=== PATIENT | male | born 1955 | race Two or more races ===

== ENCOUNTER → 2020-11-01 | Outpatient (CLI) | payer MEDICARE, BC ==
--- NOTE | 2020-11-01 18:35 | CT ---
EXAMINATION TYPE: CT angio chest DATE OF EXAM: 11/01/2020 COMPARISON: Chest x-ray 11/01/2020 HISTORY: SOB post covid CT DLP: 657 mGycm Automated exposure control for dose reduction was used. CONTRAST: CTA scan of the thorax is performed with IV Contrast, patient injected with 66cc mL of Isovue 370, pu lmonary embolism protocol. MIP images are created and reviewed. 3D reconstructed images are created on an independent workstation and reviewed. FINDINGS: LUNGS: The lungs are remarkable for some bandlike areas of increased attenuation likely representing atelectasis or scarring, there is no concerning parenchymal mass or nodule identified. There is no pleural effusion or pneumothorax seen. The tracheobronchial tree is patent. AORTA: No additional significant abnormality is seen. MEDIASTINUM: There is satisfactory enhancement of the pulmonary artery and its branches, there is no CT evidence for pulmonary embolism. There are no greater than 1 cm hilar or mediastinal lymph nodes. No pericardial effusion is seen. OTHER: No additional significant abnormality is seen. IMPRESSION: NO PULMONARY EMBOLUS IS EVIDENT
== END | disposition home or self-care (01) ==
LOC: RADCTMAIN 17:11
PROVIDERS: ATTEND Internal Medicine
DX: R06.02 Shortness of breath (principal); Z86.16 Personal history of COVID-19
CPT/HCPCS: 82565; 84520; 71275; 36415; Q9967

== ENCOUNTER 2021-01-05 17:39 | Observation (INO) | payer MEDICARE, BC ==
[2021-01-05 18:27] LABS: Basophils # (A) 0.1 k/uL (0-0.2); Basophils % (A) 1 %; Eosinophils # (A) 0.2 k/uL (0-0.7); Eosinophils % (A) 3 %; HCT 43.5 % (39.0-53.0); HGB 14.7 gm/dL (13.0-17.5); Lymphocytes # (A) 2.6 k/uL (1.0-4.8); Lymphocytes % (A) 38 %; MCHC 33.7 g/dL (31.0-37.0); Monocytes # (A) 0.5 k/uL (0-1.0); Monocytes % (A) 7 %; Neutrophils # (A) 3.4 k/uL (1.3-7.7); Neutrophils % (A) 49 %; Platelet Count 206 k/uL (150-450); RBC 4.89 m/uL (4.30-5.90)
[2021-01-05 18:37] LABS: ALT 29 U/L (4-49); AST 20 U/L (17-59); African American GFR (CKD) >90 (>60 ml/min/1.73 sqM); Albumin 3.9 g/dL (3.5-5.0); Alkaline Phosphatase 83 U/L (38-126); Anion Gap 9 mmol/L; Blood Urea Nitrogen 19 mg/dL (9-20); Calcium 8.8 mg/dL (8.4-10.2); Carbon Dioxide 23 mmol/L (22-30); Chloride 108 mmol/L (98-107); Glucose 102 mg/dL (74-99); Magnesium 1.9 mg/dL (1.6-2.3); Non-African American GFR(CKD) >90 (>60 ml/min/1.73 sqM); Partial Thromboplastin Time 23.5 sec (22.0-30.0); Potassium 3.8 mmol/L (3.5-5.1); Prothrombin Time 10.8 sec (9.0-12.0); Sodium 140 mmol/L (137-145); Total Bilirubin 0.5 mg/dL (0.2-1.3); Total Protein 6.3 g/dL (6.3-8.2)
--- NOTE | 2021-01-05 18:50 | ED ---
Chest Pain HPI - General Chief Complaint: Chest Pain Stated Complaint: Chest Pain Time Seen by Provider: 01/05/21 17:40 Source: patient Mode of arrival: ambulatory Limitations: no limitations - History of Present Illness Initial Comments: 65-year-old male with past medical history of hypertension who presents emergency chest pain. States the chest discomfort started around 2:00 this afternoon. He describes it as a pressure sensation which radiated to his left arm. Denies any associated nausea, vomiting or diaphoresis. No previous history of cardiac disease. They stated cardiac clearance years ago before orthopedic surgery. Denies fevers, chills, cough. No sick contacts. No lower extremity swelling. Denies history of DVT or PE. Patient went to an urgent care where he had a 12-lead EKG performed and was transferred to the hospital for further evaluation. No other alleviating, precipitating or modifying factors - Related Data Home Medications Medication Instructions Recorded Confirmed Aspirin EC [Ecotrin Low Dose] 81 mg PO HS 01/05/21 01/05/21 Fluticasone Propionate [Flovent 1 puff INHALATION RT-BID 01/05/21 01/05/21 Hfa 220 mcg] Latanoprost/Pf [Latanoprost 0.005% 1 drop BOTH EYES HS 01/05/21 01/05/21 Eye Drop] Losartan Potassium 100 mg PO HS 01/05/21 01/05/21 Tamsulosin HCl [Flomax] 0.4 mg PO HS 01/05/21 01/05/21 valACYclovir HCL [Valtrex] 500 mg PO DAILY PRN 01/05/21 01/05/21 Allergies Allergy/AdvReac Type Severity Reaction Status Date / Time ciprofloxacin [From Cipro] Allergy Rash/Hives Verified 01/05/21 19:45 methocarbamol [From Robaxin] Allergy Rash/Hives Verified 01/05/21 19:45 Review of Systems ROS Statement: Those systems with pertinent positive or pertinent negative responses have been documented in the HPI. ROS Other: All systems not noted in ROS Statement are negative. EKG Findings - EKG Comments: EKG Findings:: EKG at 1753 demonstrates a normal sinus rhythm with a ventricular rate of 65. ID interval 162. QRS 94. QTC 430. Inverted T waves [address] segment elevation. Repeat EKG at 1843 demonstrates a ventricular rhythm with a rate of 62. ID interval 160. QRS 98. QTC of 406. Continued inverted T-wave in 1 and aVL Past Medical History Past Medical History: Hypertension, Prostate Disorder History of Any Multi-Drug Resistant Organisms: None Reported Past Surgical History: Orthopedic Surgery Additional Past Surgical History / Comment(s): R. shoulder sx, Left hip replacement, bilat knee scope Past Psychological History: No Psychological Hx Reported Smoking Status: Never smoker Past Alcohol Use History: Occasional Past Drug Use History: None Reported General Exam Limitations: no limitations General appearance: alert, in no apparent distress Head exam: Present: atraumatic, normocephalic, normal inspection Eye exam: Present: normal appearance, PERRL, EOMI. Absent: scleral icterus, conjunctival injection, periorbital swelling ENT exam: Present: normal exam, mucous membranes moist Neck exam: Present: normal inspection. Absent: tenderness, meningismus, lymphadenopathy Respiratory exam: Present: normal lung sounds bilaterally. Absent: respiratory distress, wheezes, rales, rhonchi, stridor Cardiovascular Exam: Present: regular rate, normal rhythm, normal heart sounds. Absent: systolic murmur, diastolic murmur, rubs, gallop, clicks GI/Abdominal exam: Present: soft, normal bowel sounds. Absent: distended, tenderness, guarding, rebound, rigid Extremities exam: Present: normal inspection, full ROM, normal capillary refill. Absent: tenderness, pedal edema, joint swelling, calf tenderness Back exam: Present: normal inspection Neurological exam: Present: alert, oriented X3, CN II-XII intact Psychiatric exam: Present: normal affect, normal mood Skin exam: Present: warm, dry, intact, normal color. Absent: rash Course Vital Signs 01/05/21 01/05/21 01/05/21 17:40 18:49 19:19 Temperature 98.0 F Pulse Rate 69 58 L Pulse Rate [ 62 Surveillance Officer ] Respiratory 17 18 Rate Blood Pressure 178/79 155/82 O2 Sat by Pulse 97 97 Oximetry 01/05/21 19:57 Temperature 98.0 F Pulse Rate 57 L Pulse Rate [ Surveillance Officer ] Respiratory 18 Rate Blood Pressure 145/85 O2 Sat by Pulse 96 Oximetry Chest Pain MDM - MDM Upon arrival patient was placed into room 5. A thorough history and physical exam was performed. 12-lead EKG was performed. Laboratory studies were conducted and chest x-ray is performed. Troponin is negative. Chest x-ray demonstrates no acute process. I did repeat a 12-lead EKG. I did recommend hospital admission for which patient did agree to. Spoke with Dr. Greer who agreed to admit the patient. He was transferred to the floor in stable condition. Disposition Clinical Impression: Chest pain Disposition: ADMITTED IP TO THIS HOSP Condition: Stable Is patient prescribed a controlled substance at d/c from ED?: No Decision to Admit Reason: Admit from EC Decision Date: 01/05/21 Decision Time: 19:44
--- NOTE | 2021-01-05 19:31 | XR ---
EXAMINATION TYPE: XR chest 2V DATE OF EXAM: 01/05/2021 COMPARISON: 11/01/2020 HISTORY: Chest pain TECHNIQUE: FINDINGS: Heart and mediastinum are normal. Lungs are clear of infiltrate. There is no heart failure. There are no hilar masses. There are chest leads. IMPRESSION: No active cardiopulmonary disease. Normal heart. No adverse change compared to old exam.
[2021-01-05] MEDS ORDERED: NALOXONE 0.4 MG/ML 1 ML VIAL IV PRN (19:44)
[2021-01-05] MEDS ORDERED: ASPIRIN 81 MG PO STA (19:50)
[2021-01-05] MEDS ORDERED: TAMSULOSIN 0.4 MG CAP.ER.24H PO SCH (21:30)
[2021-01-05] MEDS ORDERED: ASPIRIN 81 MG PO SCH (21:45)
[2021-01-05] MEDS ORDERED: LATANOPROST 0.005% OPHTH DROPS 2.5 ML BTL BOTH EYES SCH (22:00)
[2021-01-05] MEDS ORDERED: LOSARTAN 50 MG TAB PO SCH (22:00)
--- NOTE | 2021-01-06 02:45 | HP ---
HISTORY AND PHYSICAL HISTORY OF PRESENT ILLNESS: 65-year-old white male was admitted to the hospital with atypical chest pain radiating to the mid chest area into his shoulder all day today. He was brought to the emergency room, admitted for rule out myocardial infarction. He has a history of hypertension, morbid obesity. He has inverted T-waves in [address]-segment depression. He has some GERD. ALLERGIES: CIPRO, ROBAXIN. PAST MEDICAL HISTORY: Hypertension, prostate disorder. PAST SURGICAL HISTORY: Right shoulder surgery, left hip surgery, bilateral knee surgery. SOCIAL HISTORY: Does not smoke. No alcohol. No drugs. REVIEW OF SYSTEMS: 14 point negative otherwise review of systems. PHYSICAL EXAMINATION: Temp 98, pulse 50s to 60s, respiratory 16 to 18, blood pressure 150-170s over 70s to 80s, O2 97. ASSESSMENT: 1. Atypical chest pain. 2. Morbid obesity. 3. Hypertension. 4. Rule out gastroesophageal reflux disease. Cardiology to consult. So far troponins are negative x2. Possibly need a stress test prior to going home with clearance will be given by Cardiology. MMODL / IJN: [id number] /
[2021-01-06] MEDS ORDERED: FLUTICASONE 220 MCG INHALER INHALATION SCH (08:00)
[2021-01-06] MEDS ORDERED: amLODIPine 10 MG TAB PO SCH (09:00)
[2021-01-06] MEDS ORDERED: valACYclovir 500 MG TAB PO PRN (09:00)
[2021-01-06 09:25] LABS: Basophils # (A) 0.03 X 10*3/uL (0.00-0.10); Basophils % (A) 0.5 %; Eosinophils # (A) 0.25 X 10*3/uL (0.04-0.35); Eosinophils % (A) 3.8 %; HCT 43.3 % (39.6-50.0); Lymphocytes # (A) 2.93 X 10*3/uL (0.90-5.00); Lymphocytes % (A) 45.1 %; MCH 29.5 pg (27.0-32.0); MCHC 32.3 g/dL (32.0-37.0); MCV 91.4 fL (80.0-97.0); Mean Platelet Volume 12.7 fL (9.5-12.2); Monocytes # (A) 0.69 X 10*3/uL (0.20-1.00); Monocytes % (A) 10.6 %; Neutrophils # (A) 2.58 X 10*3/uL (1.80-7.70); Neutrophils % (A) 39.7 %; Platelet Count 204 X 10*3/uL (140-440); RBC 4.74 X 10*6/uL (4.40-5.60); RDW 13.2 % (11.5-14.5)
--- NOTE | 2021-01-06 10:00 | P.CRDCN ---
History of Present Illness History of present illness: HISTORY OF PRESENTING ILLNESS This is a pleasant 65-year-old male past medical history significant for hypertension and morbid obesity. He follows in the office with Dr. Beard. He denies prior history of coronary artery disease. He states his father is from heart disease at the age of 61. We have been asked to see in consultation for chest pain. He states yesterday he was sitting down watching television when he started feeling lightheaded. He has issues with his blood pressure so he checked it to see how was running. He states it was running high. He can't remember the Number but he said the bottom number was between 90 and 115. Shortly thereafter he developed a discomfort in the left precordial region described as a heavy pressure sensation that radiated to the left shoulder and left upper arm. This persisted for a couple of hours without any specific alleviating factors. Given his blood pressure was elevated he decided to go to urgent care. At urgent care they did an EKG and transferred him here for further evaluation. The EKG revealed sinus mechanism with T-wave inversions in the high lateral leads. There is no old EKG for comparison. The patient states prior to having shoulder surgery last year he did undergo a stress test at Dr. Beard's office. We were able to get a copy of the stress test and it was a Lexiscan stress test that was negative for any reversibility or myocardial perfusion defects. LV systolic function at that time was 71%. EKG, and on that EKG says resting EKG was normal sinus rhythm with PVC and poor R-wave progression from V1 through V3. There is no comment on the lateral leads and there is no copy of EKG. Chest x-ray is negative for an acute cardiopulmonary process. Laboratory data reviewed, CBC unremarkable, d-dimer 0.42, sodium 140, potassium 3.8, creatinine 0.78, magnesium 1.9, cardiac enzymes negative 3, NT proBNP 62. Current daily cardiac medications include aspirin 81 mg daily and l osartan 100 mg daily. REVIEW OF SYSTEMS At the time of my exam: CONSTITUTIONAL: Denies fever or chills. CARDIOVASCULAR: Denies chest pain, shortness of breath, orthopnea, PND or palpitations. RESPIRATORY: Denies cough. GASTROINTESTINAL: Denies abdominal pain, diarrhea, constipation, nausea or vomi ting. MUSCULOSKELETAL: Denies myalgias. NEUROLOGIC: Denies numbness, tingling, headacbe or weakness. ENDOCRINE: Denies fatigue, weight change, polydipsia or polyurina. GENITOURINARY: Denies burning, hematuria or urgency with micturation. HEMATOLOGIC: Denies history of anemia or bleeding. PHYSICAL EXAMINATION Blood pressure 160/78 heart rate 54 afebrile and maintaining oxygen saturation on room air. CONSTITUTIONAL: No apparent distress. Obese. HEENT: Head is normocephalic. Pupils are equal, round. Sclerae anicteric. Mucous membranes of the mouth are moist. No JVD. No carotid bruit. CHEST EXAMINATION: Lungs are clear to auscultation. No chest wall tenderness is noted on palpation or with deep breathing. HEART EXAMINATION: Regular rate and rhythm. S1, S2 heard. No murmurs, gallops or rub. ABDOMEN: Soft, nontender. Positive bowel sounds. EXTREMITIES: 2+ peripheral pulses, no lower extremity edema and no calf tenderness. NEUROLOGIC EXAMINATION: Patient is awake, alert and oriented x3. ASSESSMENT Chest pain with EKG abnormalities Hypertension, uncontrolled Morbid obesity, BMI 42 Family history of premature coronary artery disease PLAN An acute coronary event has been ruled out. We have requested a copy of the previous EKG from his cardiology office for further review. Once we have this EKG we will make further recommendations regarding possible cardiac catheterization. Patient is to remain nothing by mouth until we make a further decision. He has been updated as to the plan of care. In the meantime we will obtain 2-D echocardiogram and Doppler study to assess cardiac structure and function. Continue losartan as previously ordered and add amlodipine 10 mg daily to his regimen. Further recommendations to follow based upon clinical course. Thank you kindly for this consultation. Nurse Practitioner note has been reviewed, I agree with a documented findings and plan of care. Patient was seen and examined. Past Medical History Past Medical History: Hypertension, Prostate Disorder History of Any Multi-Drug Resistant Organisms: None Reported Past Surgical History: Orthopedic Surgery Additional Past Surgical History / Comment(s): R. shoulder sx, Left hip replacement, bilat knee scope Past Psychological History: No Psychological Hx Reported Smoking Status: Never smoker Past Alcohol Use History: Occasional Past Drug Use History: None Reported Medications and Allergies Home Medications Medication Instructions Recorded Confirmed Type Aspirin EC [Ecotrin Low Dose] 81 mg PO HS 01/05/21 01/05/21 History Fluticasone Propionate [Flovent 1 puff INHALATION RT-BID 01/05/21 01/05/21 History Hfa 220 mcg] Latanoprost/Pf [Latanoprost 0.005% 1 drop BOTH EYES HS 01/05/21 01/05/21 History Eye Drop] Losartan Potassium 100 mg PO HS 01/05/21 01/05/21 History Tamsulosin HCl [Flomax] 0.4 mg PO HS 01/05/21 01/05/21 History valACYclovir HCL [Valtrex] 500 mg PO DAILY PRN 01/05/21 01/05/21 History Allergies Allergy/AdvReac Type Severity Reaction Status Date / Time ciprofloxacin [From Cipro] Allergy Rash/Hives Verified 01/05/21 19:45 methocarbamol [From Robaxin] Allergy Rash/Hives Verified 01/05/21 19:45 Physical Exam Vitals: Vital Signs Temp Pulse Pulse Pulse Resp BP BP 01/06/21 07:00 97.7 F 54 L 14 160/78 01/06/21 02:00 54 L 01/06/21 01:45 97.7 F 54 L 16 162/87 01/05/21 22:30 55 L 01/05/21 20:14 97.9 F 55 L 18 176/84 01/05/21 19:57 98.0 F 57 L 18 145/85 01/05/21 19:19 58 L 18 155/82 01/05/21 18:49 62 01/05/21 17:40 98.0 F 69 17 178/79 Pulse Ox 01/06/21 07:00 97 01/06/21 02:00 01/06/21 01:45 96 01/05/21 22:30 01/05/21 20:14 96 01/05/21 19:57 96 01/05/21 19:19 97 01/05/21 18:49 01/05/21 17:40 97 Intake and Output 01/05/21 01/06/21 01/06/21 22:59 06:59 14:59 Other: Voiding Method Toilet # Voids 1 Weight 135.624 kg Results 01/06/21 05:33 01/05/21 18:19 Cardiac Enzymes 01/05/21 01/05/21 01/05/21 Range/Units 18:19 18:19 20:43 AST 20 (17-59) U/L Troponin I <0.012 <0.012 (0.000-0.034) ng/mL 01/06/21 Range/Units 00:33 AST (17-59) U/L Troponin I <0.012 (0.000-0.034) ng/mL Coagulation 01/05/21 Range/Units 18:19 PT 10.8 (9.0-12.0) sec APTT 23.5 (22.0-30.0) sec CBC 01/05/21 Range/Units 18:19 WBC 7.0 (3.8-10.6) k/uL RBC 4.89 (4.30-5.90) m/uL Hgb 14.7 (13.0-17.5) gm/dL Hct 43.5 (39.0-53.0) % Plt Count 206 (150-450) k/uL Comprehensive Metabolic Panel 01/05/21 Range/Units 18:19 Sodium 140 (137-145) mmol/L Potassium 3.8 (3.5-5.1) mmol/L Chloride 108 H (98-107) mmol/L Carbon Dioxide 23 (22-30) mmol/L BUN 19 (9-20) mg/dL Creatinine 0.78 (0.66-1.25) mg/dL Glucose 102 H (74-99) mg/dL Calcium 8.8 (8.4-10.2) mg/dL AST 20 (17-59) U/L ALT 29 (4-49) U/L Alkaline Phosphatase 83 (38-126) U/L Total Protein 6.3 (6.3-8.2) g/dL Albumin 3.9 (3.5-5.0) g/dL Current Medications Generic Name Dose Route Start Last Admin Trade Name Freq PRN Reason Stop Dose Admin Aspirin 81 mg 01/05/21 21:45 01/05/21 22:25 Aspirin 81 Mg PO Not Given HS CHIDI Fluticasone Propionate 1 puff 01/06/21 08:00 01/06/21 08:15 Fluticasone 220 Mcg Inhaler INHALATION Not Given RT-BID CHIDI Latanoprost 1 drops 01/05/21 22:00 01/05/21 22:19 Latanoprost 0.005% Ophth Drops 2.5 Ml Btl BOTH EYES 1 drops HS CHIDI Administration Losartan Potassium 100 mg 01/05/21 22:00 01/05/21 22:41 Losartan 50 Mg Tab PO 100 mg HS CHIDI Administration Naloxone HCl 0.2 mg 01/05/21 19:44 Naloxone 0.4 Mg/Ml 1 Ml Vial IV Q2M PRN Opioid Reversal Tamsulosin HCl 0.4 mg 01/05/21 21:30 01/05/21 22:18 Tamsulosin 0.4 Mg Cap.Er.24h PO 0.4 mg HS CHIDI Administration Valacyclovir HCl 500 mg 01/06/21 09:00 Valacyclovir 500 Mg Tab PO DAILY PRN Cold Sores Intake and Output 01/05/21 01/06/21 01/06/21 22:59 06:59 14:59 Other: Voiding Method Toilet # Voids 1 Weight 135.624 kg 01/05/21 18:19 01/05/21 18:19
[2021-01-06] MEDS ORDERED: ASPIRIN 325 MG TAB PO STA (11:17)
[2021-01-06] MEDS ORDERED: NITROGLYCERIN SL TABS 0.4 MG TAB SUBLINGUAL PRN (11:17)
[2021-01-06] MEDS ORDERED: ALPRAZolam 0.25 MG TAB PO PRN (11:17)
[2021-01-06] MEDS ORDERED: SODIUM CHLORIDE 0.9% 1,000 ML in EMPTY BAG 1 BAG IV ONE (11:17)
[2021-01-06] MEDS ORDERED: ALPRAZolam 0.5 MG TAB PO PRN (11:17)
[2021-01-06] MEDS ORDERED: ATORVASTATIN 80 MG TAB PO STA (11:17)
[2021-01-06] MEDS ORDERED: IV FLUID CONTINUATION 1,000 ML IV ONE (11:25)
[2021-01-06] MEDS ORDERED: MIDAZOLAM 2 MG/2 ML VIAL IV ONE (11:54)
[2021-01-06] MEDS ORDERED: fentaNYL (PF) 50 MCG/ML 2 ML AMP IV ONE (11:54)
[2021-01-06] MEDS ORDERED: LIDOCAINE 1% INJ 10MG/ML (20 ML MDV) SQ ONE (11:56)
[2021-01-06] MEDS ORDERED: IOPAMIDOL-370 125ML BTL INJ ONE (12:06)
[2021-01-06] MEDS ORDERED: SODIUM CHLORIDE 0.9% 1,000 ML IV SCH (12:15)
[2021-01-06] MEDS ORDERED: RX INFO: IV CONTRAST WAS GIVEN 1 EACH MISC MISCELLANE PRN (12:15)
[2021-01-06 12:19] LABS: African American GFR (CKD) 90.5 (60.0-200.0); Anion Gap 11.2 mmol/L (4.00-12.00); Carbon Dioxide 27.8 mmol/L (21.6-31.8); Non-African American GFR(CKD) 78.1 (60.0-200.0); Potassium 4.2 mmol/L (3.5-5.5)
--- NOTE | 2021-01-06 17:32 | CC ---
CARDIAC CATHETERIZATION REPORT INDICATION: Unstable angina. PROCEDURE NOTE: After obtaining informed consent, left heart catheterization, coronary angiogram are performed via the right femoral artery using standard Gloria catheters. Patient tolerated the procedure well without any obvious immediate complications. A femoral angiogram was performed and Angio-Seal was deployed for hemostasis. Patient received moderate conscious sedation. Total sedation time was 15 minutes. FINDINGS: HEMODYNAMICS: Left ventricular end-diastolic pressure is 15 mm. There is no significant gradient across the aortic valve. LEFT VENTRICULOGRAM: Left ventriculogram is not performed. ANGIOGRAPHIC DATA: LEFT MAIN CORONARY ARTERY: Left main coronary artery is a normal-sized vessel and is free of stenosis. Divides into left anterior descending coronary artery and circumflex coronary artery. LEFT ANTERIOR DESCENDING: LAD and its branches, circumflex coronary artery and its branches are free of significant stenosis. RIGHT CORONARY ARTERY: Is a large dominant vessel and is free of significant disease. CONCLUSIONS: 1. Normal coronary arteries. 2. Mildly elevated left ventricular end-diastolic pressures. PLAN: I reviewed angiographic data with the patient and told him that his chest pain is noncardiac in origin and his management is going to be in the form of risk factor modification. MMODL / IJN: [id number] /
[2021-01-06 19:45] VITALS: BP 178/84; PULSE 73; RESP 14; TEMP 98.5
[2021-01-06] MEDS ORDERED: LOSARTAN 50 MG TAB PO SCH (21:00)
[2021-01-06] MEDS ORDERED: ASPIRIN 81 MG PO SCH (21:00)
[2021-01-06] MEDS ORDERED: LATANOPROST 0.005% OPHTH DROPS 2.5 ML BTL BOTH EYES SCH (21:00)
[2021-01-07 03:49] LABS: LDL Cholesterol,Calculated 104.8 mg/dL (0.0-131.0); VLDL Calculation 31.2 mg/dL (5.00-40.00)
[2021-01-07] MEDS ORDERED: HEPARIN SODIUM,PORCINE 2,500 UNIT in SODIUM CHLORIDE 0.9% 250 ML IRRIGATION PRN (07:00)
[2021-01-07] MEDS ORDERED: HEPARIN SODIUM,PORCINE 10,000 UNIT in SODIUM CHLORIDE 0.9% 1,000 ML IRRIGATION PRN (07:00)
== END 2021-01-06 19:45 | disposition home or self-care (01) ==
LOC: EC 17:39 → 6NMEDSUR 19:44
PROVIDERS: ADMIT Family Medicine; ATTEND Family Medicine
DX: R07.89 Other chest pain (principal); E66.01 Morbid (severe) obesity due to excess calories; Z68.41 Body mass index [BMI] 40.0-44.9, adult; I10 Essential (primary) hypertension; K21.9 Gastro-esophageal reflux disease without esophagitis; I49.3 Ventricular premature depolarization; R42 Dizziness and giddiness; N42.9 Disorder of prostate, unspecified; Z88.9 Allergy status to unspecified drugs, medicaments and biological substances; Z88.1 Allergy status to other antibiotic agents; Z79.51 Long term (current) use of inhaled steroids; Z79.82 Long term (current) use of aspirin; Z79.899 Other long term (current) drug therapy; Z96.642 Presence of left artificial hip joint; Z82.49 Family history of ischemic heart disease and other diseases of the circulatory system
CPT/HCPCS: 93458; 93005 ×2; 36415; 93306; 85379; 83880; 80061; 80053; 80048; 83735; 84484 ×2; 85025 ×2; 85610; 85730; 71046; G0378 ×2; C1769 ×2; C1760; C1894; J2250; J2001; J3010; Q9967